=== PATIENT | male | born 1965 | race African-American/Black ===

== ENCOUNTER 2022-10-02 13:31 | Emergency (ER) | payer OTHER ==
[~2022-10-02] VITALS: Ht 172.7 cm; Wt 72.2 kg
[2022-10-02 15:52] LABS: Basophils # (auto) 0.1 10 ^3/uL (0-0.2); Basophils % (auto) 1.4 % (0.0-2.0); Eosinophils # (auto) 0.2 10 ^3/uL (0-0.8); Eosinophils % (auto) 4.5 % (0.0-7.0); Hematocrit 36.4 % (41.0-53.0); Lymphocytes % (auto) 25.5 % (10.0-50.0); Mean Corpuscular Hemoglobin 26.9 pg (28.0-32.0); Mean Corpuscular Hgb Conc. 32.8 g/dL (32.0-36.0); Monocytes # (auto) 0.5 10 ^3/uL (0-1.3); Monocytes % (auto) 13.6 % (0.0-12.0); Neutrophils # (auto) 2.1 10 ^3/uL (1.6-8.6); Red Blood Cells 4.44 10^6/uL (4.5-5.90); Red Cell Distribution Width 15.7 % (11.8-14.3); White Blood Cell 3.8 10^3/uL (4.4-10.8)
[2022-10-02 15:58] LABS: Urine Bacteria NONE SEEN /hpf (None Seen); Urine Blood Negative /uL (Negative); Urine Mucus FEW (None Seen); Urine Specific Gravity 1.022 (1.001-1.035); Urine WBC 1 /hpf (0 - 3)
[2022-10-02 15:58] LABS: Albumin 3.6 g/dL (3.4-5.0)
[2022-10-02 16:03] LABS: BUN/Creatinine Ratio 11.9 (10.0-20.0); Bilirubin, Total 0.3 mg/dL (0.2-1.0); Total Protein 6.8 g/dL (6.4-8.2)
[2022-10-02] MEDS ORDERED: ENOXAPARIN SOD 40 MG/0.4 ML SYRINGE SC SCH (18:30)
[2022-10-02] MEDS ORDERED: MORPHINE SULFATE INJ 2 MG/ml SYRG IV PRN (18:30)
[2022-10-02] MEDS ORDERED: DOCUSATE SOD 100 MG CAP PO PRN (18:30)
[2022-10-02] MEDS ORDERED: SODIUM CHLORIDE 0.9% 1,000 ML IV SCH (18:30)
[2022-10-02] MEDS ORDERED: ONDANSETRON HCL 4 MG/2 ML VIAL IV PRN (18:30)
[2022-10-02 19:09] VITALS: PULSE 63; RESP 14; O2SAT 100
[2022-10-02 19:30] VITALS: PULSE 65; RESP 12; TEMP 98.2; O2SAT 99
[2022-10-02 22:00] VITALS: BP 154/73; PULSE 68; RESP 11; O2SAT 99
== END 2022-10-02 23:32 | disposition left against medical advice (07) ==
LOC: ER 13:31 → OVERFLOW 18:54 → UNDOADMIN 18:54 → ER 23:28
DX: S34.119A Complete lesion of unspecified level of lumbar spinal cord, initial encounter (principal); R53.1 Weakness; R51.9 Headache, unspecified; X50.1XXA Overexertion from prolonged static or awkward postures, initial encounter; Y93.01 Activity, walking, marching and hiking; Y92.89 Other specified places as the place of occurrence of the external cause; Y99.8 Other external cause status
CPT/HCPCS: 36415; 70450; 72131; 80053; 81001; 82962; 85025